=== PATIENT | male | born 1965 | race African-American/Black ===

== ENCOUNTER 2018-05-21 04:08 | Emergency (ER) | payer MEDICAID ==
[~2018-05-21] VITALS: Ht 165.1 cm; Wt 79.0 kg
[2018-05-21] MEDS ORDERED: KETOROLAC 60MG/2ML VIAL IM STA (06:51)
[2018-05-21] MEDS ORDERED: AMLODIPINE 10MG TABLET PO ONE (07:00)
[2018-05-21 07:34] LABS: BASOPHILS % 0.6 % (0.0-2.0); EOSINOPHILS % 1.1 % (0.0-5.0); HEMATOCRIT. 36.1 % (42.0-52.0); HEMOGLOBIN. 12.3 g/dL (14.0-18.0); LYMPHOCYTES % 20.2 % (20.0-50.0); MEAN CORPUSCULAR HEMOGLOBIN 29.2 pg (28.0-32.0); MEAN CORPUSCULAR VOLUME 85.8 fL (80.0-94.0); MEAN PLATELET VOLUME 7.9 fl (7.4-10.4); MONOCYTES % 7.9 % (2.0-8.0); NEUTROPHILS % 70.2 % (40.0-76.0); PLATELET 261 x1000/uL (130-400); RED BLOOD CELL COUNT 4.21 mill/uL (4.7-6.1); RED CELL DISTRIBUTION WIDTH 14.8 % (11.6-14.6)
[2018-05-21 07:36] LABS: CHLORIDE 107 mEq/L (98-107)
[2018-05-21] MEDS ORDERED: POTASSIUM CHLORIDE 20MEQ TABLET SR PO ONE (09:15)
[2018-05-21 10:44] LABS: CHLORIDE 108 mEq/L (98-107)
[2018-05-21 11:10] VITALS: BP 118/76
== END 2018-05-21 11:51 | disposition home or self-care (01) ==
LOC: ER 04:08
DX: I10 Essential (primary) hypertension (principal); G44.89 Other headache syndrome; E87.6 Hypokalemia; E78.00 Pure hypercholesterolemia, unspecified; F17.210 Nicotine dependence, cigarettes, uncomplicated
CPT/HCPCS: 36415; 80048; 85025; 96372; 99283; J1885

== ENCOUNTER 2021-07-08 13:54 | Inpatient (IN) | payer MEDICAID, OTHER ==
[~2021-07-08] VITALS: Ht 170.2 cm; Wt 76.8 kg
[2021-07-08] MEDS ORDERED: NITROGLYCERIN OINT 1GM/INCH UDPKT TD ONE (14:15)
[2021-07-08] MEDS ORDERED: FUROSEMIDE 40MG/4ML VIAL IV ONE (14:15)
[2021-07-08 14:46] LABS: BASOPHILS % 0.6 % (0.0-2.0); EOSINOPHILS % 0.3 % (0.0-5.0); HEMATOCRIT. 40.9 % (42.0-52.0); HEMOGLOBIN. 13.5 g/dL (14.0-18.0); LYMPHOCYTES % 19.4 % (20.0-50.0); MEAN CORPUSCULAR HEMOGLOBIN 29.6 pg (28.0-32.0); MEAN CORPUSCULAR VOLUME 89.8 fL (80.0-94.0); MEAN PLATELET VOLUME 8.9 fl (7.4-10.4); MONOCYTES % 6.9 % (2.0-8.0); NEUTROPHILS % 72.8 % (40.0-76.0); PLATELET 245 x1000/uL (130-400); RED BLOOD CELL COUNT 4.56 mill/uL (4.7-6.1); RED CELL DISTRIBUTION WIDTH 16.1 % (11.6-14.6)
[2021-07-08 14:56] LABS: CHLORIDE 111 mEq/L (98-107)
[2021-07-08 15:05] LABS: ETHANOL BLOOD < 10 mg/dL
[2021-07-08] MEDS ORDERED: ASPIRIN 325MG EC TABLET PO ONE (15:15)
[2021-07-08 16:35] LABS: *AMPHETAMINES SCREEN URINE NEGATIVE (NEGATIVE); *BARBITURATES SCREEN URINE NEGATIVE (NEGATIVE); *BENZODIAZEPINES SCREEN URINE NEGATIVE (NEGATIVE); *COCAINE SCREEN URINE NEGATIVE (NEGATIVE); CANNABINOID URINE SCREEN NEGATIVE (NEGATIVE); METHADONE URINE SCREEN NEGATIVE (NEGATIVE); OPIATES URINE SCREEN NEGATIVE (NEGATIVE); PHENCYCLIDINE URINE SCREEN NEGATIVE (NEGATIVE)
[2021-07-08 20:00] VITALS: BP_SYST 150; BP_SYST 156; BP_DIAS 110
[2021-07-09] VITALS: BP 158/95
[2021-07-09 04:00] VITALS: BP 159/96
[2021-07-09 08:00] VITALS: BP 154/114
[2021-07-09 08:42] LABS: CHLORIDE 109 mEq/L (98-107)
[2021-07-09 08:52] LABS: BASOPHILS % 0.9 % (0.0-2.0); EOSINOPHILS % 0.7 % (0.0-5.0); HEMATOCRIT. 40.9 % (42.0-52.0); HEMOGLOBIN. 13.5 g/dL (14.0-18.0); LYMPHOCYTES % 17.1 % (20.0-50.0); MEAN CORPUSCULAR HEMOGLOBIN 29.3 pg (28.0-32.0); MEAN CORPUSCULAR VOLUME 88.7 fL (80.0-94.0); MEAN PLATELET VOLUME 9.3 fl (7.4-10.4); MONOCYTES % 5.9 % (2.0-8.0); NEUTROPHILS % 75.4 % (40.0-76.0); PLATELET 242 x1000/uL (130-400); RED BLOOD CELL COUNT 4.61 mill/uL (4.7-6.1); RED CELL DISTRIBUTION WIDTH 16.1 % (11.6-14.6)
[2021-07-09] MEDS: ENOXAPARIN 40MG/0.4ML SYR SUBCUT SCH (10:35)
[2021-07-09] MEDS: FUROSEMIDE 40MG/4ML VIAL IVP SCH ×2 (10:35→18:08)
[2021-07-09 12:00] VITALS: BP 155/94
[2021-07-09] MEDS ORDERED: ONDANSETRON HCL 4MG/2ML INJ IV PRN (12:00)
[2021-07-09] MEDS ORDERED: IPRATROPIUM/ALBUTEROL 0.5-3(2.5)MG/3ML NEB HHN PRN (12:00)
[2021-07-09] MEDS ORDERED: DOCUSATE SODIUM 100MG CAPSULE PO PRN (12:00)
[2021-07-09] MEDS ORDERED: LORAZEPAM 0.5MG TABLET PO PRN (12:00)
[2021-07-09] MEDS ORDERED: CLONIDINE 0.1MG TABLET PO PRN (12:00)
[2021-07-09] MEDS ORDERED: ACETAMINOPHEN 325MG TABLET PO PRN ×2 (12:00)
[2021-07-09] MEDS ORDERED: POTASSIUM CHLORIDE INJ 40 MEQ in DEXT 5% WATER 250 ML IV ONE (12:00)
[2021-07-09] MEDS ORDERED: HYDROCODONE/ACETAMINOPHEN 5/325MG TABLET PO PRN (12:00)
[2021-07-09] MEDS ORDERED: BENZONATATE 100MG CAPSULE PO PRN (12:30)
[2021-07-09] MEDS: KCL 20MEQ/100ML X 2 FOR TOTAL KCL 40MEQ/200ML IV SCH (15:07)
[2021-07-09 16:00] VITALS: BP 152/99
[2021-07-09 16:39] LABS: CREATINE KINASE MB FRACTION 4.6 ng/mL (0.5-3.6)
[2021-07-09] MEDS ORDERED: NALOXONE HCL 0.4MG/ML VIAL IV PRN (19:00)
[2021-07-09] MEDS: ASPIRIN 81MG EC TABLET PO SCH (19:04)
[2021-07-09 20:00] VITALS: BP 149/115
[2021-07-09] MEDS: ATORVASTATIN CALCIUM 10MG TABLET PO SCH (21:51)
[2021-07-09] MEDS: CARVEDILOL 6.25 MG TABLET PO SCH (21:51)
[2021-07-09 22:03] LABS: BASOPHILS % 0.9 % (0.0-2.0); EOSINOPHILS % 0.8 % (0.0-5.0); HEMATOCRIT. 40.8 % (42.0-52.0); HEMOGLOBIN. 13.6 g/dL (14.0-18.0); LYMPHOCYTES % 21.2 % (20.0-50.0); MEAN CORPUSCULAR HEMOGLOBIN 29.6 pg (28.0-32.0); MEAN PLATELET VOLUME 9.5 fl (7.4-10.4); MONOCYTES % 7.3 % (2.0-8.0); NEUTROPHILS % 69.8 % (40.0-76.0); PLATELET 221 x1000/uL (130-400); RED BLOOD CELL COUNT 4.59 mill/uL (4.7-6.1); RED CELL DISTRIBUTION WIDTH 15.9 % (11.6-14.6)
[2021-07-10] VITALS: BP 152/98
[2021-07-10 04:00] VITALS: BP 153/112
[2021-07-10] MEDS: ASPIRIN 81MG EC TABLET PO SCH (07:56)
[2021-07-10] MEDS: ENOXAPARIN 40MG/0.4ML SYR SUBCUT SCH (07:57)
[2021-07-10] MEDS: CARVEDILOL 6.25 MG TABLET PO SCH ×2 (07:58→21:52)
[2021-07-10 08:00] VITALS: BP 122/112
[2021-07-10 09:36] LABS: BASOPHILS % 0.7 % (0.0-2.0); EOSINOPHILS % 0.9 % (0.0-5.0); HEMATOCRIT. 42.2 % (42.0-52.0); LYMPHOCYTES % 16.4 % (20.0-50.0); MEAN CORPUSCULAR HEMOGLOBIN 29.5 pg (28.0-32.0); MEAN CORPUSCULAR VOLUME 88.7 fL (80.0-94.0); MEAN PLATELET VOLUME 10.1 fl (7.4-10.4); MONOCYTES % 5.9 % (2.0-8.0); NEUTROPHILS % 76.1 % (40.0-76.0); PLATELET 243 x1000/uL (130-400); RED BLOOD CELL COUNT 4.76 mill/uL (4.7-6.1); RED CELL DISTRIBUTION WIDTH 15.9 % (11.6-14.6)
[2021-07-10 09:53] LABS: CHLORIDE 104 mEq/L (98-107)
[2021-07-10] MEDS: FUROSEMIDE 40MG/4ML VIAL IVP SCH ×2 (10:36→17:09)
[2021-07-10 12:00] VITALS: BP 105/89
[2021-07-10 16:00] VITALS: BP 139/109
[2021-07-10 20:00] VITALS: BP 117/81
[2021-07-10] MEDS: ATORVASTATIN CALCIUM 10MG TABLET PO SCH (21:51)
[2021-07-11] VITALS: BP 128/82
[2021-07-11 04:00] VITALS: BP 134/110
[2021-07-11] MEDS: FUROSEMIDE 40MG/4ML VIAL IVP SCH (06:23)
[2021-07-11 08:00] VITALS: BP 135/104
[2021-07-11] MEDS: CARVEDILOL 6.25 MG TABLET PO SCH (08:31)
[2021-07-11] MEDS: ASPIRIN 81MG EC TABLET PO SCH (08:31)
[2021-07-11] MEDS: ENOXAPARIN 40MG/0.4ML SYR SUBCUT SCH (08:31)
[2021-07-11 11:49] VITALS: BP 128/89
[2021-07-11] MEDS ORDERED: LOSARTAN POTASSIUM 25 MG TABLET PO SCH (13:00)
== END 2021-07-11 14:35 | disposition left against medical advice (07) | DRG 194 ==
LOC: ER 13:54 → 8WST 17:36 → ENRESERV 18:04
PROVIDERS: ADMIT Internal Medicine; ATTEND Internal Medicine
DX: I11.0 Hypertensive heart disease with heart failure (principal); J96.01 Acute respiratory failure with hypoxia; E78.00 Pure hypercholesterolemia, unspecified; D64.9 Anemia, unspecified; I42.0 Dilated cardiomyopathy; S62.301A Unspecified fracture of second metacarpal bone, left hand, initial encounter for closed fracture; I50.43 Acute on chronic combined systolic (congestive) and diastolic (congestive) heart failure; Z82.49 Family history of ischemic heart disease and other diseases of the circulatory system; Z87.891 Personal history of nicotine dependence; E78.5 Hyperlipidemia, unspecified; R79.89 Other specified abnormal findings of blood chemistry; E87.6 Hypokalemia; R94.31 Abnormal electrocardiogram [ECG] [EKG]; R74.01 Elevation of levels of liver transaminase levels; F14.10 Cocaine abuse, uncomplicated; F10.10 Alcohol abuse, uncomplicated; F15.90 Other stimulant use, unspecified, uncomplicated; Z53.29 Procedure and treatment not carried out because of patient's decision for other reasons; Z71.6 Tobacco abuse counseling
CPT/HCPCS: 36415; 71045; 73120; 80048; 80053; 80061; 80305; 80320; 82550; 82553; 83036; 83735; 83880; 84100; 84443; 84484; 85025; 87426; 93005; 93306; 99291; J1650; J1940; J3480; G0480

== ENCOUNTER 2021-07-18 11:34 | Inpatient (IN) | payer MEDICAID, OTHER ==
[~2021-07-18] VITALS: Ht 182.9 cm; Wt 79.4 kg
[2021-07-18] MEDS ORDERED: FUROSEMIDE 40MG/4ML VIAL IVP ONE (12:15)
[2021-07-18] MEDS ORDERED: NITROGLYCERIN 0.4MG TABLET SL SL PRN (12:15)
[2021-07-18 12:33] LABS: BASOPHILS % 0.7 % (0.0-2.0); EOSINOPHILS % 0.5 % (0.0-5.0); HEMATOCRIT. 40.1 % (42.0-52.0); HEMOGLOBIN. 13.2 g/dL (14.0-18.0); LYMPHOCYTES % 16.8 % (20.0-50.0); MEAN CORPUSCULAR HEMOGLOBIN 29.5 pg (28.0-32.0); MEAN CORPUSCULAR VOLUME 89.8 fL (80.0-94.0); MEAN PLATELET VOLUME 8.7 fl (7.4-10.4); MONOCYTES % 7.1 % (2.0-8.0); NEUTROPHILS % 74.9 % (40.0-76.0); PLATELET 228 x1000/uL (130-400); RED BLOOD CELL COUNT 4.47 mill/uL (4.7-6.1); RED CELL DISTRIBUTION WIDTH 15.5 % (11.6-14.6)
[2021-07-18 12:42] LABS: CHLORIDE 110 mEq/L (98-107)
[2021-07-18 12:52] LABS: ETHANOL BLOOD < 10 mg/dL
[2021-07-18 18:42] VITALS: BP 159/126
[2021-07-18 20:00] VITALS: BP 148/66
[2021-07-18] MEDS ORDERED: CLONIDINE 0.1MG TABLET PO PRN (23:15)
[2021-07-19] VITALS: BP 152/76
[2021-07-19] MEDS ORDERED: FURO40TA5 MT (02:20)
[2021-07-19] MEDS ORDERED: CARV3.1242 MT (02:20)
[2021-07-19] MEDS ORDERED: RISP1TAB97 MT (02:20)
[2021-07-19] MEDS ORDERED: ATOR20TA65 MT (02:20)
[2021-07-19] MEDS ORDERED: SERT-422 MT (02:20)
[2021-07-19] MEDS ORDERED: ASPI-1406 MT (02:20)
[2021-07-19 04:00] VITALS: BP 163/85
[2021-07-19 06:16] LABS: BASOPHILS % 0.6 % (0.0-2.0); EOSINOPHILS % 0.9 % (0.0-5.0); HEMATOCRIT. 42.2 % (42.0-52.0); HEMOGLOBIN. 13.9 g/dL (14.0-18.0); LYMPHOCYTES % 19.5 % (20.0-50.0); MEAN CORPUSCULAR HEMOGLOBIN 29.6 pg (28.0-32.0); MEAN CORPUSCULAR VOLUME 90.3 fL (80.0-94.0); MEAN PLATELET VOLUME 9.3 fl (7.4-10.4); MONOCYTES % 6.9 % (2.0-8.0); NEUTROPHILS % 72.1 % (40.0-76.0); PLATELET 238 x1000/uL (130-400); RED BLOOD CELL COUNT 4.68 mill/uL (4.7-6.1); RED CELL DISTRIBUTION WIDTH 15.9 % (11.6-14.6)
[2021-07-19 07:48] LABS: CHLORIDE 107 mEq/L (98-107)
[2021-07-19 08:00] VITALS: BP 128/116
[2021-07-19] MEDS: FUROSEMIDE 40MG/4ML VIAL IVP SCH ×2 (08:08→20:07)
[2021-07-19] MEDS: ENOXAPARIN 40MG/0.4ML SYR SUBCUT SCH (08:11)
[2021-07-19] MEDS ORDERED: POTASSIUM CHLORIDE 20MEQ/PACKET PO NR ×3 (11:00→16:00)
[2021-07-19 12:00] VITALS: BP 156/116
[2021-07-19] MEDS: LOSARTAN POTASSIUM 25 MG TABLET PO SCH (13:12)
[2021-07-19] MEDS: ASPIRIN 81MG EC TABLET PO SCH (13:12)
[2021-07-19] MEDS ORDERED: METOLAZONE 2.5MG TABLET PO NR (13:15)
[2021-07-19 16:00] VITALS: BP 153/120
[2021-07-19 16:31] LABS: PHOSPHORUS 3.1 mg/dL (2.5-4.9)
[2021-07-19 19:15] LABS: CLARITY URINE CLEAR (CLEAR); COLOR URINE YELLOW (YELLOW); KETONES URINE NEGATIVE (NEGATIVE); LEUKOCYTE ESTERASE URINE NEGATIVE (NEGATIVE); NITRITE URINE NEGATIVE (NEGATIVE); OCCULT BLOOD URINE TRACE (NEGATIVE); PROTEIN URINE TRACE (NEGATIVE); SPECIFIC GRAVITY URINE 1.015 (1.005-1.030)
[2021-07-19 19:26] LABS: *AMPHETAMINES SCREEN URINE NEGATIVE (NEGATIVE); *BARBITURATES SCREEN URINE NEGATIVE (NEGATIVE); *BENZODIAZEPINES SCREEN URINE NEGATIVE (NEGATIVE); *COCAINE SCREEN URINE NEGATIVE (NEGATIVE); CANNABINOID URINE SCREEN PRESUMTIVE POSITIVE (NEGATIVE); METHADONE URINE SCREEN NEGATIVE (NEGATIVE); OPIATES URINE SCREEN NEGATIVE (NEGATIVE); PHENCYCLIDINE URINE SCREEN NEGATIVE (NEGATIVE)
[2021-07-19 20:00] VITALS: BP 148/82
[2021-07-19] MEDS: CARVEDILOL 6.25 MG TABLET PO SCH (20:11)
[2021-07-20] VITALS: BP 128/76
[2021-07-20 04:00] VITALS: BP 142/81
[2021-07-20 07:31] LABS: BASOPHILS % 0.5 % (0.0-2.0); EOSINOPHILS % 1.1 % (0.0-5.0); HEMATOCRIT. 41.6 % (42.0-52.0); LYMPHOCYTES % 16.1 % (20.0-50.0); MEAN CORPUSCULAR HEMOGLOBIN 29.7 pg (28.0-32.0); MEAN CORPUSCULAR VOLUME 88.3 fL (80.0-94.0); MEAN PLATELET VOLUME 9.5 fl (7.4-10.4); MONOCYTES % 6.3 % (2.0-8.0); PLATELET 218 x1000/uL (130-400); RED BLOOD CELL COUNT 4.71 mill/uL (4.7-6.1); RED CELL DISTRIBUTION WIDTH 15.1 % (11.6-14.6)
[2021-07-20 07:51] LABS: CHLORIDE 101 mEq/L (98-107)
[2021-07-20 08:00] VITALS: BP 138/95
[2021-07-20] MEDS: ENOXAPARIN 40MG/0.4ML SYR SUBCUT SCH (09:00)
[2021-07-20] MEDS: CARVEDILOL 6.25 MG TABLET PO SCH ×2 (10:41→20:05)
[2021-07-20] MEDS: ASPIRIN 81MG EC TABLET PO SCH (10:41)
[2021-07-20] MEDS: POTASSIUM CHLORIDE 20MEQ TABLET SR PO NR ×2 (10:41→13:39)
[2021-07-20] MEDS: FUROSEMIDE 40MG/4ML VIAL IVP SCH ×2 (10:42→20:04)
[2021-07-20 12:00] VITALS: BP 141/108
[2021-07-20] MEDS ORDERED: METOLAZONE 2.5MG TABLET PO NR (13:00)
[2021-07-20] MEDS: LOSARTAN POTASSIUM 25 MG TABLET PO SCH (13:38)
[2021-07-20] MEDS ORDERED: POTASSIUM CHLORIDE 20MEQ/PACKET PO NR (15:00)
[2021-07-20 16:00] VITALS: BP 145/97
[2021-07-20 20:00] VITALS: BP 133/103
[2021-07-21] VITALS: BP 120/90
[2021-07-21 04:00] VITALS: BP 135/99
[2021-07-21 07:00] LABS: BASOPHILS % 1.1 % (0.0-2.0); EOSINOPHILS % 1.5 % (0.0-5.0); HEMATOCRIT. 42.7 % (42.0-52.0); HEMOGLOBIN. 14.4 g/dL (14.0-18.0); LYMPHOCYTES % 23.4 % (20.0-50.0); MEAN CORPUSCULAR HEMOGLOBIN 30.1 pg (28.0-32.0); MEAN CORPUSCULAR VOLUME 89.5 fL (80.0-94.0); MEAN PLATELET VOLUME 9.4 fl (7.4-10.4); MONOCYTES % 8.8 % (2.0-8.0); NEUTROPHILS % 65.2 % (40.0-76.0); PLATELET 226 x1000/uL (130-400); RED BLOOD CELL COUNT 4.77 mill/uL (4.7-6.1); RED CELL DISTRIBUTION WIDTH 15.5 % (11.6-14.6)
[2021-07-21 07:18] LABS: CHLORIDE 97 mEq/L (98-107)
[2021-07-21 08:00] VITALS: BP 128/94
[2021-07-21] MEDS: ENOXAPARIN 40MG/0.4ML SYR SUBCUT SCH (09:32)
[2021-07-21] MEDS: FUROSEMIDE 40MG/4ML VIAL IVP SCH ×2 (09:32→20:42)
[2021-07-21] MEDS: ASPIRIN 81MG EC TABLET PO SCH (09:32)
[2021-07-21] MEDS: CARVEDILOL 6.25 MG TABLET PO SCH ×2 (09:33→20:42)
[2021-07-21 12:00] VITALS: BP 118/83
[2021-07-21] MEDS ORDERED: LOSA25TA3 PO (13:12)
[2021-07-21] MEDS ORDERED: COR6 PO (13:12)
[2021-07-21] MEDS: LOSARTAN POTASSIUM 25 MG TABLET PO SCH (14:25)
[2021-07-21 16:00] VITALS: BP 125/92
[2021-07-21 20:00] VITALS: BP 101/71
[2021-07-22] VITALS: BP 114/78
[2021-07-22 04:00] VITALS: BP 123/93
[2021-07-22 08:00] VITALS: BP 128/98
[2021-07-22] MEDS: CARVEDILOL 6.25 MG TABLET PO SCH ×2 (08:29→20:50)
[2021-07-22] MEDS: ASPIRIN 81MG EC TABLET PO SCH (08:29)
[2021-07-22] MEDS: FUROSEMIDE 40MG/4ML VIAL IVP SCH ×2 (08:29→21:13)
[2021-07-22] MEDS: ENOXAPARIN 40MG/0.4ML SYR SUBCUT SCH (08:30)
[2021-07-22 12:00] VITALS: BP 111/57
[2021-07-22] MEDS: LOSARTAN POTASSIUM 25 MG TABLET PO SCH (13:19)
[2021-07-22 16:00] VITALS: BP 105/73
[2021-07-22 20:00] VITALS: BP 105/74
[2021-07-23] VITALS: BP 107/84
[2021-07-23 04:00] VITALS: BP 122/77
[2021-07-23 08:00] VITALS: BP 118/82
[2021-07-23] MEDS: ASPIRIN 81MG EC TABLET PO SCH (09:06)
[2021-07-23] MEDS: CARVEDILOL 6.25 MG TABLET PO SCH (09:06)
[2021-07-23] MEDS: ENOXAPARIN 40MG/0.4ML SYR SUBCUT SCH (09:06)
[2021-07-23] MEDS: FUROSEMIDE 40MG/4ML VIAL IVP SCH (09:07)
[2021-07-23 09:32] VITALS: BP 118/82
== END 2021-07-23 10:06 | disposition home or self-care (01) | DRG 133 ==
LOC: ER 11:34 → 8WST 16:00 → ENRESERV 16:58
PROVIDERS: ADMIT Internal Medicine; ATTEND Internal Medicine
DX: J96.00 Acute respiratory failure, unspecified whether with hypoxia or hypercapnia (principal); I50.23 Acute on chronic systolic (congestive) heart failure; I27.20 Pulmonary hypertension, unspecified; I42.0 Dilated cardiomyopathy; R18.8 Other ascites; R16.0 Hepatomegaly, not elsewhere classified; I11.0 Hypertensive heart disease with heart failure; K76.89 Other specified diseases of liver; D64.9 Anemia, unspecified; E78.5 Hyperlipidemia, unspecified; E87.6 Hypokalemia; R94.31 Abnormal electrocardiogram [ECG] [EKG]; F17.200 Nicotine dependence, unspecified, uncomplicated; F14.10 Cocaine abuse, uncomplicated; I08.1 Rheumatic disorders of both mitral and tricuspid valves; R79.89 Other specified abnormal findings of blood chemistry; F15.90 Other stimulant use, unspecified, uncomplicated; Z91.19 Patient's noncompliance with other medical treatment and regimen; Z59.00 Homelessness unspecified; Z90.49 Acquired absence of other specified parts of digestive tract; Z82.49 Family history of ischemic heart disease and other diseases of the circulatory system; Z91.14 Patient's other noncompliance with medication regimen; S62.301D Unspecified fracture of second metacarpal bone, left hand, subsequent encounter for fracture with routine healing
CPT/HCPCS: 36415; 71045; 74176; 80048; 80053; 80305; 80320; 81003; 83605; 83735; 83880; 84100; 84484; 85025; 93005; 93308; 99285; J1650; J1940; G0480